=== PATIENT | female | born 1955 | race Asian ===

== ENCOUNTER 2018-09-11 07:12 | Emergency (ER) | payer OTHER ==
[2018-09-11] MEDS ORDERED: NS 0.9% 1000 ML** 1,000 ML IV ONE (07:39)
[2018-09-11 07:52] VITALS: BP 133/71
--- NOTE | 2018-09-11 07:52 | UC ---
General HPI - HPI Summary HPI Summary: Patient presents to urgent care with her family. Patient 59 photophobia mono does not speak Citizen [place]. Family states the last to 3 days she's been having fevers with a MAXIMUM TEMPERATURE of 39. Patient without a cough. Patient with decreased by mouth decreased urinary output. No diarrhea. Patient's been taking Motrin with the last dose in the middle the night. Patient with progressive weakness. Patient states the family is speaking normally to her. Patient very quiet but the family says this is baseline. Patient without any medical history. No surgeries. Patient no prescribed medications. Patient without any surgeries. No rash. Patient on no medications prescribed to her. Patient with no known allergies. Patient here visiting but has been here for 3 months. - History of Current Complaint Chief Complaint: UCGeneralIllness Stated Complaint: FEVER Time Seen by Provider: 09/11/18 07:33 Hx Obtained From: Patient Onset/Duration: Gradual Onset Pain Intensity: 6 - Allergy/Home Medications Allergies/Adverse Reactions: Allergies Allergy/AdvReac Type Severity Reaction Status Date / Time No Known Allergies Allergy Verified 09/11/18 07:43 Home Medications: Home Medications Ibuprofen 200 mg PO ONCE PRN 09/11/18 [History Confirmed 09/11/18] NK [No Home Medications Reported] 09/11/18 [History Confirmed 09/11/18] PMH/Surg Hx/FS Hx/Imm Hx Previously Healthy: Yes - Surgical History Surgical History: None - Family History Known Family History: Positive: Non-Contributory - Social History Occupation: Unemployed Lives: With Family - visiting x 3 months Alcohol Use: None Substance Use Type: None Smoking Status (MU): Never Smoked Tobacco Review of Systems All Other Systems Reviewed And Are Negative: Yes Constitutional: Positive: Fever, Fatigue Gastrointestinal: Negative: Abdominal Pain, Vomiting, Nausea Is Patient Immunocompromised?: No - Comments Additional Review of Systems Comments: somewhat limited - pt does not speak [place] - family interprets Physical Exam - Summary Physical Exam Summary: Vital Signs Reviewed: Yes Pt with intermittnet decreased alertness - family reports responds with normal words and appropriate words. Pt does follow commands Eyes: Conjunctiva Clear, TIERNEY. EOM intact and full ENT: Hearing grossly normal, lips dry, Neck: Positive: Supple Respiratory: Positive: No respiratory distress, No accessory muscle use + CTA throughout no w/r Cardiovascular: RRR nl s1, s2 no m/r CBT < 2 sec abd soft + BS nt/nd no guarding, no distension Musculoskeletal Exam: + 5/5 grasp Pt with spont movement noted x 4 - pt not following commands for movement - able to adjust self in stretcherr Neurological: Positive: Alert with intermittent episodes of decreased responsiveness Psychological: Positive: Normal Response To Family Skin: Positive: no rash, no ecchymosis Triage Information Reviewed: Yes Vital Signs: Initial Vital Signs Temp 97.3 F 09/11/18 07:29 Pulse 69 09/11/18 07:29 Resp 18 09/11/18 07:29 BP 81/51 09/11/18 07:29 Pulse Ox 95 09/11/18 07:29 Course/Dx - Course Course Of Treatment: Patient is non Citizen [place] speaking presents to urgent care with family. Report, patient with fevers for the last 3 days. Patient's been given Motrin with improvement. Patient with decreased by mouth decrease in output. No complaints of pain. No complaints of chest pain or shortness of breath. Patient is on no prescription medications. Patient is here visiting for the last 3 months. Upon initial evaluation, nurse called me to the room as patient with intermittent episodes of apparent decreased level of responsiveness. Patient's blood pressure was markedly hypotensive. Patient placed on stretcher. IV placed. Fingerstick blood glucose was green 140. EKG shows sinus without any acute ST-T wave changes. Patient blood pressure improved while she was supine. Patient's family states she does respond appropriately to questions asked without any slurred words. No reports of confusion. Reports a fall. The patient's intermittent apparent decreased mental status patient transferred by [facility] to EMS. Spoke with Dr. Beckwith aware patient coming by EMS - Diagnoses Provider Diagnosis: Fever, Change in mental status, Hypotension Discharge - Sign-Out/Discharge Documenting (check all that apply): Patient Departure Signing out patient TO: Maco Beckwith - in ED All imaging exams completed and their final reports reviewed: No Studies - Discharge Plan Condition: Fair Disposition: TRANS HIGHER LVL OF CARE FAC Referrals: No Primary Care Phys,NOPCP [Primary Care Provider] - - Billing Disposition and Condition Condition: FAIR Disposition: Trans Higher Lvl of Care Fac
== END 2018-09-11 08:00 | disposition short-term general hospital (02) ==
LOC: UCEAST 07:12
DX: R50.9 Fever, unspecified (principal); R41.82 Altered mental status, unspecified; I95.9 Hypotension, unspecified
CPT/HCPCS: 93005; 96361; 99203; G0463

== ENCOUNTER 2018-09-11 08:13 | Emergency (ER) | payer OTHER ==
[2018-09-11] MEDS ORDERED: NS 0.9% 1000 ML** 1,000 ML IV ONE ×2 (08:58→11:26)
--- NOTE | 2018-09-11 09:02 | ED ---
HPI Febrile Illness - HPI Summary HPI Summary: A 63 y/o female brought in by [facility] ambulance, accompanied by her children, presents to [facility] with a chief complaint of fever since 09/07/18. Per triage note, the patient was transferred from [facility] for [facility] and being hypotensive. Temperature recorded at 08:28 was 100.4. She denies any pain, rating her pain as a 0/10 in severity. Per patient's son, the patient has dysuria and is eating too little, but is drinking well and does not have diarrhea, cough, chest pain, congestion or runny nose. He reports that the patient has weakness without pain. Vital signs while in room - HR: 68 bpm, O2 Sat: 94, BP: 131/68 - History of Current Complaint Chief Complaint: EDFever Time Seen by Provider: 09/11/18 08:24 Hx Obtained From: Patient Onset/Duration: Started Days Ago, Still Present Timing: Constant, Lasting Days Temperature: 100.4 F - at 08:28 09/11/18 Initial Severity: Mild Current Severity: None Pain Intensity: 0 Pain Scale Used: 0-10 Numeric Aggravating Factors: Nothing Alleviating Factors: Nothing Associated Signs and Symptoms: Negative - diarrhea, Dysuria - Allergy/Home Medications Allergies/Adverse Reactions: Allergies Allergy/AdvReac Type Severity Reaction Status Date / Time No Known Allergies Allergy Verified 09/11/18 07:43 PMH/Surg Hx/FS Hx/Imm Hx Endocrine/Hematology History: Denies: Hx Diabetes Cardiovascular History: Denies: Hx Hypertension Opthamlomology History: Reports: Hx Contacts or Glasses Infectious Disease History: No Infectious Disease History: Denies: Traveled Outside the [place] in Last 30 Days - Family History Known Family History: Negative: Blood Disorder - Social History Alcohol Use: None Substance Use Type: Reports: None Smoking Status (MU): Never Smoked Tobacco Review of Systems Positive: Fever - 100.4 at 08:28 ENT: Negative - nasal congestion Negative: Nasal Discharge Negative: Chest Pain Negative: Cough Positive: dysuria Positive: Weakness All Other Systems Reviewed And Are Negative: Yes Physical Exam - Summary Physical Exam Summary: Appearance: The patient is well-nourished in no acute distress and in no acute pain. Skin: The skin is warm and dry and skin color reflects adequate perfusion. HEENT: The head is normocephalic and atraumatic. The pupils are equal and reactive. The conjunctivae are clear and without drainage. Nares are patent and without drainage. Mouth reveals dry mucous membranes and the throat is without erythema and exudate. The external ears are intact. The ear canals are patent and without drainage. The tympanic membranes are intact. Neck: The neck is supple with full range of motion and non-tender. There are no carotid bruits. There is no neck vein distension. Respiratory: Chest is non-tender. Lungs are clear to auscultation and breath sounds are symmetrical and equal. Cardiovascular: Heart is regular rate and rhythm. There is no murmur or rub auscultated. There is no peripheral edema and pulses are symmetrical and equal. Abdomen: The abdomen is soft and non-tender. There are normal bowel sounds heard in all four quadrants and there is no organomegaly palpated. Musculoskeletal: There is no back tenderness noted. Extremities are non-tender with full range of motion. There is good capillary refill. There is no peripheral edema or calf tenderness elicited. Neurological: Patient is alert and oriented to person, place and time. The patient has symmetrical motor strength in all four extremities. Cranial nerves are grossly intact. Deep tendon reflexes are symmetrical and equal in all four extremities. Psychiatric: The patient has an appropriate affect and does not exhibit any anxiety or depression. Triage Information Reviewed: Yes Vital Signs On Initial Exam: Initial Vitals Pulse Resp Pulse Ox 67 17 97 09/11/18 08:24 09/11/18 08:24 09/11/18 08:24 Vital Signs Reviewed: Yes Diagnostics - Vital Signs Vital Signs Temp Pulse Resp BP Pulse Ox 09/11/18 08:42 63 15 131/68 97 09/11/18 08:28 100.4 F 97 23 123/65 97 09/11/18 08:24 67 17 97 - Laboratory Result Diagrams: 09/11/18 09:07 09/11/18 09:07 Lab Statement: Any lab studies that have been ordered have been reviewed, and results considered in the medical decision making process. - Radiology CXR Radiology Interpretation Completed By: Radiologist Summary of Radiographic Findings: LOW LUNG VOLUMES, SMALL BIBASILAR INFILTRATES. ED physician has reviewed this imaging report. - EKG 09:10 Cardiac Rate: NL - 64 bpm EKG Rhythm: Sinus Rhythm ST Segment: Normal Ectopy: None Summary of EKG Findings: Normal sinus rhythm, normal ST, no ectopy, no STEMI Re-Evaluation - Re-Evaluation First Eval Re-Evaluation Time: 11:24 Change: Improved Comment: discussed results. Patient will be discharged. Course/Dx - Course Course Of Treatment: Ms. Cole was brought in by her son and [id number] who translate for her. She is apparently been not feeling well for couple of days and not eating much although still drinking fluids. [facility] although not tachycardic. They initiated IV fluids and transferred her to the emergency department. On arrival here she stated she was feeling a bit better and her pressure had normalized. She had received about 500 cc of normal saline. Her physical exam was unremarkable and laboratory studies showed only a mildly elevated CRP and an equivocal urinalysis. Chest x-ray was read by radiology as early infiltrates bilaterally. She was given Levaquin to cover both etiologies. Her initial dose here was IV and she was given a prescription for by mouth. She was feeling much improved at discharge and had been stable during her stay here. - Diagnoses Provider Diagnoses: Pneumonia Discharge - Sign-Out/Discharge Documenting (check all that apply): Patient Departure - DC Patient Received Moderate/Deep Sedation with Procedure: No - Discharge Plan Condition: Stable Disposition: HOME Prescriptions: Levofloxacin TAB* [Levaquin TAB*] 750 mg PO DAILY #10 tab Patient Education Materials: Pneumonia (ED) Referrals: [facility] [Outside] (2-3 days) Additional Instructions: Follow up with [facility]. Return to the ED if you experience any new or worsening symptoms. - Billing Disposition and Condition Condition: STABLE Disposition: Home - Attestation Statements Document Initiated by Juarezibe: Yes Documenting Scribe: Xiang Fuchs Provider For Whom Cecy is Documenting (Include Credential): Maco Beckwith MD Scribe Attestation: I, Xiang Fuchs, scribed for Maco Beckwith MD on 09/11/18 at 1504. Scribe Documentation Reviewed: Yes Provider Attestation: The documentation as recorded by the Xiang lai accurately reflects the service I personally performed and the decisions made by me, Maco Beckwith MD Status of Scribe Document: Viewed
[2018-09-11 09:14] LABS: ABS Basophils 0 10^3/ul (0-0.2); ABS Eosinophils 0 10^3/ul (0-0.6); ABS Lymphocytes 0.6 10^3/ul (1.0-4.8); ABS Monocytes 0.7 10^3/ul (0-0.8); ABS Neutrophils 6.8 10^3/ul (1.5-7.7); ABS Nucleated RBC 0 10^3/ul; Eosinophil % 0.1 %; Hematocrit 34 % (35-47); Hemoglobin 11.4 g/dl (12.0-16.0); Lymphocyte % 7.4 %; Mean Corpuscular HGB Conc 33 g/dl (31-36); Mean Corpuscular Hemoglobin 30 pg (27-31); Mean Corpuscular Volume 89 fL (80-97); Mean Platelet Volume 7.4 fL (7.4-10.4); Nucleated Red Blood Cells % 0.1; Platelet Count 234 10^3/ul (150-450); Red Blood Count 3.86 10^6/ul (4.00-5.40); Red Cell Distribution Width 13 % (10.5-15); White Blood Count 8.2 10^3/ul (3.5-10.8)
[2018-09-11 09:37] LABS: Albumin 3.4 g/dL (3.2-5.2); BUN/Creatinine Ratio 11.2 (8-20); C Reactive Protein 149.92 mg/L (<8.01); Calcium 8.6 mg/dL (8.6-10.3); EGFR African American 69.1 (>60); EGFR Non-African American 57.1 (>60); Globulin 3.4 g/dL (2-4); Magnesium 2.1 mg/dL (1.9-2.7); Total Bilirubin 0.3 mg/dL (0.2-1.0); Total Protein 6.8 g/dL (6.4-8.9)
[2018-09-11 10:02] LABS: TSH (Thyroid Stimulating Horm) 1.37 mcIU/mL (0.34-5.60)
[2018-09-11 10:22] LABS: Influenza A Molecular NEGATIVE (Negative); Influenza B Molecular NEGATIVE (Negative)
[2018-09-11] MEDS ORDERED: Levofloxacin 750 MG IVPREMIX(* 750 MG/150 ML BAG IVPB ONE (11:26)
[2018-09-11 11:49] LABS: Urine Appearance Cloudy; Urine Bacteria 1+ (Absent); Urine Bilirubin Negative (Negative); Urine Blood 2+ (Negative); Urine Color Yellow; Urine Glucose Negative (Negative); Urine Ketones Trace (Negative); Urine Nitrite Negative (Negative); Urine Protein Negative (Negative); Urine Red Blood Cell 2+(6-10/hpf) (Absent); Urine Urobilinogen Negative (Negative); Urine White Blood Cell 3+(>20/hpf) (Absent)
[2018-09-11 13:06] VITALS: BP 169/87
== END 2018-09-11 13:06 | disposition home or self-care (01) ==
LOC: ED 08:13
DX: J18.9 Pneumonia, unspecified organism (principal); R30.0 Dysuria; R53.1 Weakness
CPT/HCPCS: 36415; 71045; 80053; 81003; 81015; 83605; 83735; 84443; 84484; 85025; 86140; 87086; 93005; 96365; 99282